=== PATIENT | female | born 1975 | race Hispanic/Latino ===

== ENCOUNTER 2024-01-29 22:21 | Emergency (ER) | payer BC ==
[~2024-01-29] VITALS: Ht 144.8 cm; Wt 65.3 kg
[2024-01-29] MEDS: TETANUS/DIPHTHERIA TOXOID [ADULT] 0.5 ML VIAL IM ONE (22:48)
[2024-01-29 23:23] VITALS: BP 148/84; PULSE 76; RESP 16; O2SAT 100
== END 2024-01-29 23:17 | disposition home or self-care (01) ==
LOC: EDH 22:21
DX: S61.218D Laceration without foreign body of other finger without damage to nail, subsequent encounter (principal); I10 Essential (primary) hypertension; E11.9 Type 2 diabetes mellitus without complications; Z98.890 Other specified postprocedural states; Z23 Encounter for immunization; X58.XXXD Exposure to other specified factors, subsequent encounter
CPT/HCPCS: 90471; 90714